=== PATIENT | female | born 1935 | race Caucasian/White ===

== ENCOUNTER 2023-06-24 11:44 | Day surgery (SDC) | payer MEDICARE, BC ==
[~2023-06-24] VITALS: Ht 165.1 cm; Wt 68.2 kg
[2023-06-24] VITALS (11 sets, daily range): BP systolic 105–152; BP diastolic 59–94; PULSE 53–128; RESP 12–19; TEMP 98.2; O2SAT 95–99
[~2023-06-24 11:44] MED LIST: ASCO500C18 PO; ASPI-611 PO; CHONDR PO; CRANBERRY PO; GLUCOSAM PO; HYDR25TA4 PO; METAMUCIL PO; MSM PO; OMEP20CA15 PO; POTA-188 PO; RAMI5CAP65 PO
[2023-06-24] MEDS ORDERED: normal saline 1000ml 1,000 ML IV SCH (12:15)
[2023-06-24] MEDS ORDERED: fentaNYL/PF 50MCG/1 ML 2ML syringe IV ONE (12:15)
[2023-06-24] MEDS ORDERED: MIDAZolam 1mg/ml 10ml vial IV ONE (12:15)
[2023-06-24] MEDS ORDERED: METO-395 PO (12:16)
[2023-06-24] MEDS ORDERED: SPIR25TA5 PO (12:16)
[2023-06-24] MEDS ORDERED: AMI200T PO (12:16)
[2023-06-24] MEDS ORDERED: ALEN70TA80 PO (12:16)
[2023-06-24] MEDS ORDERED: APIX2.5T PO (12:16)
[2023-06-24] MEDS ORDERED: SACU1TAB PO (12:16)
== END 2023-06-24 14:15 | disposition home or self-care (01) ==
LOC: SSTAY O 11:44
PROVIDERS: ATTEND Student in an Organized Health Care Education/Training Program
DX: I48.91 Unspecified atrial fibrillation (principal); I42.9 Cardiomyopathy, unspecified; E78.5 Hyperlipidemia, unspecified; I10 Essential (primary) hypertension; I08.1 Rheumatic disorders of both mitral and tricuspid valves; Z79.899 Other long term (current) drug therapy; Z79.01 Long term (current) use of anticoagulants
CPT/HCPCS: 92960; 93005; J2250; J3010; J7030; A4620